=== PATIENT | male | born 1940 | race Caucasian/White ===

== ENCOUNTER 2017-04-17 09:37 | Day surgery (SDC) | payer BC ==
[~2017-04-17] VITALS: Ht 177.8 cm; Wt 72.6 kg
--- NOTE | ~2017-04-17 | CN ---
Consultation Report [facility] [address] [place]. [address] NAME: DUSTY CAMACHO : 36 STATUS : [facility]#: [id number] AGE: 77 ADM/REG DATE : 04/17/17 MR#: [id number] REPORT SERV DATE: 04/25/17 DICTATED BY: KALEN LE DATE: 04/25/17 REPORT STATUS : Draft TRANSCRIBED BY: MODL DATE: 04/25/17 CONSULTATION REPORT DATE OF CONSULTATION: 04/17/2017 Dr. Marquess Alexandra: Thank you for requesting my opinion regarding evaluation and management of Mr. Dusty Cmaacho' stage IIIB non-small cell lung cancer, status post concurrent chemoradiation therapy with worsening CT scan. The patient's most recent CT scan performed on 03/28/2017 demonstrated a new right-sided pleural effusion and increasing right lung paramediastinal opacities, most prominent in the right upper lobe. The differential diagnosis included consolidated lung pneumonitis, post radiation changes, tumor, or combination of these; stable chronic interstitial thickening of the left lung consistent with fibrosis, and interval decrease in the size of pericardial effusion with minimal resolution or have residual fluid. The patient remains fatigued and has had chronic shortness of breath. He denies any current fevers, chills, night sweats, nausea, vomiting, diarrhea, constipation, weight loss, or weight gain. REVIEW OF SYSTEMS: A detailed 14-point review of systems was completed. Pertinent positives and negatives are listed above. PAST MEDICAL HISTORY: 1. Squamous cell carcinoma, stage IIIB, status post diagnostic therapeutic bronchoscopy with EBUS by Dr. Alexander Mendoza on 07/14/2015, status post concurrent chemoradiation therapy from 07/28/2015 to 11/04/2015. 2. As per verbal report, developed pleural effusion and pericardial effusion, status post window which was negative for malignancy. Subsequent CT scans have demonstrated an enlarging right upper lobe lung opacities as outlined above as well as a new right- sided pleural effusion. 3. Prior tobacco abuse. PAST SURGICAL HISTORY: Bronchoscopy, abdominal hernia repair, colonoscopy. ALLERGIES: NO KNOWN DRUG ALLERGIES. HOME MEDICATIONS: Reviewed and located in the paper chart. SOCIAL HISTORY: The patient smoked for 10 years but quit many years ago. Smoked approximately half pack per day. He denies any significant history of alcohol or illicit drug abuse. FAMILY HISTORY: Noncontributory. No history of lung cancer. Consultation Report [facility] [address] [place]. [address] NAME: DUSTY CAMACHO : 36 STATUS : [facility]#: [id number] AGE: 77 ADM/REG DATE : 04/17/17 MR#: [id number] REPORT SERV DATE: 04/25/17 DICTATED BY: KALEN LE DATE: 04/25/17 REPORT STATUS : Draft TRANSCRIBED BY: NABEEL DATE: 04/25/17 PHYSICAL EXAMINATION: VITAL SIGNS: Reviewed and located in the paper chart. GENERAL: In no acute distress, able to communicate in full paragraphs at a time. HEENT: Normocephalic and atraumatic. Pupils are equal, round, and reactive to light and accommodation. Posterior oropharynx is clear. NECK: No JVD. No LAD. Trachea midline. CARDIOVASCULAR: Regular rate and rhythm. S1 and S2 present. LUNGS: Diminished breath sounds at the right base, dull to percussion. Otherwise, coarse scattered end-expiratory wheezes noted bilaterally, especially on the right. ABDOMEN: Nontender, nondistended, soft. Positive bowel sounds. EXTREMITIES: No clubbing, cyanosis, or edema. SKIN: No new rashes, lesions, or ulcers. PSYCHIATRIC: Alert and oriented x3. Appropriate mood and affect. Appropriate insight and judgment. NEUROLOGIC: 5/5 strength in upper and lower extremities. Cranial nerves II through XII intact. Gait not tested. DTRs not performed. IMAGING: CT scan of the chest performed on 03/28/2017 was personally reviewed by me and I agree with the following interpretation: 1. New right-sided pleural effusion. 2. Increasing right paramediastinal opacities, most prominent in the right upper lobe. Differential diagnosis includes consolidated lung pneumonitis, post radiation changes, tumor or combination of these. 3. Stable chronic interstitial thickening of the left lung consistent with fibrosis. 4. Interval decrease in the size of the pericardial effusion with minimal residual fluid. ASSESSMENT AND PLAN: Mr. Dusty Camacho is an extremely pleasant gentleman with a significant past medical history of stage III squamous cell carcinoma and prior pleural effusion, pericardial window, who presents to [facility] for formal evaluation of an abnormal CT scan of the chest. The patient's CT scan on 03/28/2017 confirmed increasing right lung paramediastinal opacities and new right-sided pleural effusion. The clinical and radiographic presentation is concerning for progression of disease versus radiation changes or combination of these. We discussed in detail potential options for diagnostic intervention including thoracentesis alone, EBUS and navigation bronchoscopy, and thoracentesis, CT-guided needle biopsy, thoracic surgical biopsy. After careful discussion of the risks, benefits, and alternatives to each of these procedures, we agreed to proceed forward with right-sided thoracentesis and EBUS and navigation bronchoscopy. The patient has had a prior thoracentesis which was nondiagnostic or negative, the thoracentesis in addition would allow us to give some therapeutic fact. RECOMMENDATIONS: A summary of my recommendations are as follows: 1. Proceed with EBUS and navigation bronchoscopy. Consultation Report [address] [place]. [address] NAME: DUSTY CAMACHO : 36 STATUS : [facility] PAT#: [id number] AGE: 77 ADM/REG DATE : 04/17/17 MR#: [id number] REPORT SERV DATE: 04/25/17 DICTATED BY: KALEN LE DATE: 04/25/17 REPORT STATUS : Draft TRANSCRIBED BY: NABEEL DATE: 04/25/17 2. Right-sided thoracentesis. 3. If the patient's thoracentesis recurs, I have already spoken with Dr. Reji De La Cruz's nurse practitioner and has agreed to follow up with potential for pleurodesis. Thank you for allowing me to participate in Mr. Camacho care. Sincerely, HEIDI/NABEEL Kalen Le M.D. / [id number] CC: Kaeln Le M.D.
--- NOTE | ~2017-04-17 | EGD ---
EGD REPORT [facility] [address] [place] [address] NAME: DUSTY CAMACHO : 36 STATUS : [facility]#: [id number] AGE: 77 ADM/REG DATE : 04/17/17 MR#: [id number] REPORT SERV DATE: 04/17/17 DICTATED BY: MERRILL LE DATE: 04/17/17 REPORT STATUS : Draft TRANSCRIBED BY: [employer] DATE: 04/17/17 Pulmonology Patient Name: Dusty Camacho Procedure Date: 04/17/2017 12:07 PM Date of : 1940 Attending MD: LASHAY LE MD Procedure Date No Time: 04/17/2017 Procedure: EBUS/Navigational Bronchoscopy and Thoracentesis Indications: RUL enlarging mass like consolidation, right pleural effusion with previously non-diagnostic thoracentesis. Providers: LASHAY LE MD Referring MD: Koby Alexandra III, MD Medicines: Lidocaine 2% 20 mL Complications: No immediate complications Procedure: Pre-Anesthesia Assessment: - ASA Grade Assessment: III - A patient with severe systemic disease. - A History and Physical has been performed. Patient meds and allergies have been reviewed. The risks and benefits of the procedure and the sedation options and risks were discussed with the patient. All questions were answered and informed consent was obtained. Patient identification and proposed procedure were verified prior to the procedure by the physician and the nurse in the pre-procedure area in the procedure room. Mental Status Examination: alert and oriented. Airway Examination: normal oropharyngeal airway. Respiratory Examination: poor air movement. CV Examination: normal and RRR, no murmurs, no S3 or S4. ASA Grade Assessment: IV - A patient with severe systemic disease that is a constant threat to life. After reviewing the risks and benefits, the patient was deemed in satisfactory condition to undergo the procedure. The anesthesia plan was to use general anesthesia. Immediately prior to administration of medications, the patient was re-assessed for adequacy to receive sedatives. The heart rate, respiratory rate, oxygen saturations, blood pressure, adequacy of pulmonary ventilation, and response to care were monitored throughout the procedure. The physical status of the patient was re-assessed after the procedure. After obtaining informed consent, the Bronchoscope was introduced through the mouth, via the endotracheal tube (the patient was intubated for the procedure) and advanced to the tracheobronchial tree. the BF [id number] was introduced through the mouth, via the EGD REPORT [address] [address] NAME: DUSTY CAMACHO : 36 STATUS : [facility] PAT#: [id number] AGE: 77 ADM/REG DATE : 04/17/17 MR#: [id number] REPORT SERV DATE: 04/17/17 DICTATED BY: MERRILL LE DATE: 04/17/17 REPORT STATUS : Draft TRANSCRIBED BY: [employer] DATE: 04/17/17 endotracheal tube (the patient was intubated for the procedure) and advanced to the tracheobronchial tree. The procedure was accomplished without difficulty. The patient tolerated the procedure well. Findings: EBUS and Navigational Bronchoscopy The endotracheal tube is in good position. The visualized portion of the trachea is of normal caliber. The vivek is sharp. The tracheobronchial tree was examined to at least the first subsegmental level. Abnormal endobronchial mucosa noted in the RBI. An endobronchial biopsy was performed in the bronchus intermedius of the lung using a forceps and sent for histopathology examination. One sample was obtained. Brushings were obtained in the bronchus intermedius of the lung and sent for routine cytology. One sample was obtained. EBUS TBNA of lymph node level 7 x 6 passes for cytology EBUS TBNA of lymph node level 4R x 4 passes for cytology EBUS TBNA of lymph node level 11R x 4 passes for cytology Using SuperDimension Edge catheter 180, peripheral probe EBUS 17s, and fluoroscopy, I performed the following biopsies: RUL lung mass transbronchial needle aspirates x 6 passes for cytology RUL lung mass transbronchial brush biopsy x 1 pass for cytology RUL lung mass transbronchial forcep biopsies x 6 passes for histopathology Bronchoalveolar lavage was performed in the right upper lobe of the lung and sent for routine cytology. 120 mL of fluid were instilled. 20 mL were returned. The return was blood-tinged and cellular. Mucous plugs were present in the return fluid Right ultrasound guided thoracentesis After consent was obtained, a time out was performed. The patient was placed in the appropriate position. Ultrasound survey of the right chest was performed with identification of pleural fluid and surrounding structures including the diaphragm and lung tissue. Ultrasound image interpretation: The depth to the chest wall is approximately 2 cms. The depth of the pocket is approximately 6 cms. Ultrasound images were permanently documented. The site of entry was marked using ultrasound guidance. After donning cap, mask, sterile gown and gloves, the patient was prepped with chlorhexadine and drapped. 10 ccs of 2% lidocaine with epinephrine 1:100,000 was used to numb the region. A finder needle was then used to locate fluid with aspiration of serosanguinous fluid. A small incision was performed at insertion site and a temporary 8 Wallisian pleural catheter was inserted over a needle. The catheter was attached to a suction device and 900 mls of serosanguinous fluid was removed. Impression: Rapid On-Site Evaluation (KELLY): Preliminary cytology is POSITIVE for squamous cell carcinoma (final results are pending). EGD REPORT [address] [place]. [address] NAME: DUSTY CAMACHO Zechariah : 36 STATUS : [facility] PAT#: [id number] AGE: 77 ADM/REG DATE : 04/17/17 MR#: [id number] REPORT SERV DATE: 04/17/17 DICTATED BY: MERRILL LE DATE: 04/17/17 REPORT STATUS : Draft TRANSCRIBED BY: [employer] DATE: 04/17/17 Right thoracentesis - 900 mls of serosanguinous fluid was removed. Recommendation: - Await test results. - Chest X-ray. - Follow up with referring physician, Dr. Alexandra, as previously scheduled. - Follow up in clinic. - If patient's pleural fluid is malignant and recurs, I recommend right pleurX catheter placement. Attending Participation: I personally performed the entire procedure. LASHAY LE MD 04/17/2017 2:17 PM This report has been signed electronically. Number of Addenda: 0 Note Initiated On: 04/17/2017 12:07 PM [address] [id number]
[~2017-04-17 09:37] MED LIST: ACET500CAP PO; MULTI-VIT HP PO; NORV10 PO; PRIN10 PO
[2017-04-17 10:14] LABS: BASOPHILS 0.4 %; BASOPHILS ABSOLUTE 0.03 10/3/uL (0.0-0.16); EOSINOPHILS 1.2 %; HEMATOCRIT 37.5 % (40.0-51.0); HEMOGLOBIN 12.3 g/dL (13.6-17.8); IMMATURE GRANULOCYTES 0.5 %; IMMATURE GRANULOCYTES ABSOLUTE 0.04 10/3/uL (0.0-0.11); LYMPHOCYTES 11.5 %; LYMPHOCYTES ABSOLUTE 0.95 10/3/uL (0.67-4.30); MANUAL DIFF NO %; MEAN CORPUS HGB CONC 32.8 g/dL (32.0-36.0); MEAN CORPUSCULAR HEMOGLOB 29.4 pg (26.0-34.0); MEAN CORPUSCULAR VOLUME 89.7 fL (80-100); MEAN PLATELET VOLUME 8.6 fL (9.2-13.0); MONOCYTES 7.9 %; MONOCYTES ABSOLUTE 0.65 10/3/uL (0.21-1.20); NEUTROPHILS 78.5 %; NEUTROPHILS ABSOLUTE 6.49 10/3/uL (2.02-8.40); PLATELET COUNT 213 10/3/uL (150-400); RBC DISTRIBUTION WIDTH 16.3 % (12.0-16.0); RED CELL COUNT 4.18 10/6/uL (4.7-6.1); WHITE BLOOD CELLS 8.3 10/3/uL (4.5-10.5)
[2017-04-17 10:22] LABS: INTERNATIONAL NORMAL RATI 1.1 UNITS (-); PARTIAL THROMBO TIME 34.2 SEC (22.5-37.2); PROTIME (NOT ORD) 13.6 SEC (12.0-14.5)
[2017-04-17 10:27] LABS: CALCIUM, SERUM 10.1 MG/DL (8.5-10.4); CHLORIDE, SERUM 107 MMOL/L (96-112); CO2 (CARBON DIOXIDE) 29 MMOL/L (24-34); GFR AFRICAN AMERICAN 34 ML/MIN (>=60); GFR NON AFRICAN AMERICAN 30 ML/MIN (>=60); GLUCOSE, SERUM 90 MG/DL (60-99); POTASSIUM, SERUM 4.2 MMOL/L (3.5-5.3); SODIUM, SERUM 141 MMOL/L (135-148)
[2017-04-17 10:28] LABS: BUN (BLOOD UREA NITROGEN) 20 MG/DL (6-23); CREATININE 2.06 MG/DL (0.70-1.30)
[2017-04-17 17:22] LABS: GLUCOSE BODY FL (NOT ORD) 91 MG/DL; LDH BODY FLUID (NOT ORD) 246 U/L; PROTEIN BODY FLUID 5.5 G/DL
[2017-04-17 17:56] LABS: BF TOTAL CELL CT (NOT ORD 1581 /MM3; BODY FLUID RBC (NOT ORD) 11906 /MM3
[2017-04-17 17:57] LABS: BD FL LYMPH (NOT ORD) 43 %; BF BASO (NOT OF) 0 %; BF LARGE MONONUCLEAR 53 %; BODY FLUID EOS (NOT ORD) 0 %; BODY FLUID SEG (NOT ORD) 4 %
[2017-04-17 17:58] LABS: BD FL SOURCE (NOT ORD) RIGHT PLEURAL FLUID
[2017-04-18 06:11] LABS: BD FL SOURCE (NOT ORD) PLEURAL
== END 2017-04-17 16:05 | disposition home or self-care (01) ==
LOC: DMU 09:37
PROVIDERS: Anesthesiology; Internal Medicine
PROC: 07B74ZX Excision of Thorax Lymphatic, Percutaneous Endoscopic Approach, Diagnostic (ICD-10-PCS; principal; 2017-04-17 11:00)
PROC: 0BB38ZX Excision of Right Main Bronchus, Via Natural or Artificial Opening Endoscopic, Diagnostic (ICD-10-PCS; 2017-04-17 11:00)
PROC: 07B74ZX Excision of Thorax Lymphatic, Percutaneous Endoscopic Approach, Diagnostic (ICD-10-PCS; 2017-04-17 11:00)
PROC: 0B9C8ZX Drainage of Right Upper Lung Lobe, Via Natural or Artificial Opening Endoscopic, Diagnostic (ICD-10-PCS; 2017-04-17 11:00)
PROC: 0W993ZZ Drainage of Right Pleural Cavity, Percutaneous Approach (ICD-10-PCS; 2017-04-17 11:00)
PROC: BB4BZZZ Ultrasonography of Pleura (ICD-10-PCS; 2017-04-17 11:00)
DX: C34.11 Malignant neoplasm of upper lobe, right bronchus or lung (principal); I10 Essential (primary) hypertension; Z87.891 Personal history of nicotine dependence; Z92.21 Personal history of antineoplastic chemotherapy; Z92.3 Personal history of irradiation; Z96.1 Presence of intraocular lens; Z98.41 Cataract extraction status, right eye; Z98.42 Cataract extraction status, left eye; Z79.899 Other long term (current) drug therapy; Z98.890 Other specified postprocedural states
CPT/HCPCS: 71010; 80048; 82945; 83615; 83986; 84157; 85025; 85610; 85730; 87015; 87070; 87102; 87116; 87205; 88112; 88172; 88173; 88177; 88305; 88333; 88341; 88342; 89051; 93005; C1725; C1769; J2710; J3010